=== PATIENT | female | born 1955 | race Caucasian/White ===

== ENCOUNTER → 2025-03-22 11:53 | Outpatient (CLI) | payer MEDICARE, OTHER, SELFPAY ==
--- NOTE | 2025-03-22 11:57 | DI.MG.S_ITS ---
MM diagnostic mammo unilat LT, US breast LT limited: 03/22/2025 BI-RADS: 2 CLINICAL: 69-year old female for left diagnostic mammogram and left diagnostic breast ultrasound. The patient presents for additional evaluation of an inconclusive screening mammogram - asymmetry. Tyrer-Cuzick lifetime risk of 5.0%. No personal or first- degree family history of breast cancer. The patient had a prior left breast biopsy. PRIOR EXAMS Outside films 02/06/2025, 02/01/2024, 01/26/2023, 01/20/2022. MAMMOGRAPHY TECHNIQUE: 2D and 3D (tomosynthesis) digital mammographic views obtained, with additional images as needed for full coverage. Current study was also evaluated with a Computer Aided Detection (CAD) system. ULTRASOUND TECHNIQUE: Real-time davalos scale and color doppler imaging of the area of clinical interest was performed with image documentation. TARGETED Left Breast Ultrasound: Real-time ultrasound exam was performed focused to area of clinical and/or imaging concern. DENSITY Left: C. The breast is heterogeneously dense, which may obscure small masses. MAMMOGRAPHY FINDINGS Left: CC only, Outer, Middle depth: The asymmetry seen on recent screening mammogram did not persist with additional imaging and is consistent with superimposition of normal breast tissue. ULTRASOUND FINDINGS Left: Lower Outer at 4:00, 6 cm from nipple, measuring 0.4 x 0.2 x 0.4 cm: There is a complicated cyst present. Doppler shows no vascularity. This is an incidental finding. Left: Upper Outer at 2:00, 6 cm from nipple: There is no sonographic abnormality to account for imaging concern on mammography. Left: Outer at 3:00, 6 cm from nipple: There is no sonographic abnormality to account for imaging concern on mammography. IMPRESSION: Left * No evidence of malignancy with benign findings. RECOMMENDATIONS Bilateral * Annual screening mammography. COMMENTS: Findings and recommendations were conveyed to the patient during today's evaluation. OVERALL ASSESSMENT CATEGORY BI-RADS-2: Benign. [employer] recommends annual screening mammography beginning at age 40 for women with average risk of breast cancer. ELECTRONICALLY SIGNED: Herminia Rojas M.D. on 03/22/2025 at 04:52:50 PM PT Interpreting Station ID: [id number]
== END ==
LOC: MAMMO 11:56
PROVIDERS: PCP Family Medicine; Referring Provider Family Medicine; Visit Provider Family Medicine
DX: R92.8 Other abnormal and inconclusive findings on diagnostic imaging of breast (principal); N60.02 Solitary cyst of left breast; R92.332 Mammographic heterogeneous density, left breast
CPT/HCPCS: 76642; 77065; G0279